=== PATIENT | female | born 1980 ===

== ENCOUNTER → 2022-11-15 09:59 | Outpatient (CLI) | payer OTHER, SELFPAY ==
--- NOTE | 2022-11-15 | DI.MG.S_ITS ---
UNILATERAL LEFT DIGITAL DIAGNOSTIC MAMMOGRAM 3D/2D WITH ADDITIONAL VIEWS: 11/15/2022 CLINICAL: Additional evaluation requested from prior study. Comparison is made to exams dated: 11/07/2022 mammogram and 07/20/2021 mammogram - [facility]. The left breast is heterogeneously dense, which may obscure small masses (category c / 51-75% glandular tissue). There is an asymmetry in the left breast sub-areolar depth central to the nipple seen on the mediolateral oblique view only. This is not seen in additional views. No other significant masses or calcifications are seen in the breast. IMPRESSION: INCOMPLETE: NEEDS ADDITIONAL IMAGING EVALUATION The asymmetry in the left breast is indeterminate. An ultrasound is recommended. Based on the Tyrer Cuzick model (a risk assessment model) the patient's lifetime risk is 14.3% and her 10 year risk is 2.5%. According to the ACR, ACS, and NCCN guidelines, an annual breast MRI exam along with mammogram is recommended if the patient's lifetime risk is 20% or greater. This exam was interpreted at Station ID: [id number]. NOTE: For mammograms, a report in lay terms will be sent to the patient. Approximately 15% of breast malignancies will not be visualized mammographically. In the management of a palpable breast mass, a negative mammogram must not discourage biopsy of a clinically suspicious lesion. Electronically Signed By: James Corbin M.D. lc/:11/15/2022 12:34:20 ACR BI-RADS Category 0: Incomplete 3340F
--- NOTE | 2022-11-15 | DI.US.S_ITS ---
ULTRASOUND OF LEFT BREAST: 11/15/2022 CLINICAL: Left breast abnormality. Comparison is made to exams dated: 11/15/2022 mammogram - [facility], 11/07/2022 mammogram, and 07/20/2021 mammogram - [facility]. Real-time ultrasound of the left breast was performed. Woo scale images of the real-time examination were reviewed. No significant abnormalities were seen sonographically in the left breast. IMPRESSION: NEGATIVE There is no sonographic evidence of malignancy. There is no abnormality seen in the left breast to correspond with the mammography finding, likely superimposition. Return to annual mammogram screening schedule is recommended. This exam was interpreted at Station ID: [id number]. Electronically Signed By: James Corbin M.D. lc/:11/15/2022 12:36:03 letter sent: Normal Exam Ultrasound BI-RADS: 1 Negative
== END ==
PROVIDERS: Referring Provider Family Medicine; Visit Provider Family Medicine
DX: R92.8 Other abnormal and inconclusive findings on diagnostic imaging of breast (principal); N64.89 Other specified disorders of breast
CPT/HCPCS: 76642; 77065; G0279

== ENCOUNTER → 2022-12-18 15:37 | Outpatient (CLI) | payer OTHER, SELFPAY ==
--- NOTE | 2022-12-18 | DI.US.S_ITS ---
PROCEDURE: US ABDOMEN LIMITED INDICATIONS: EPIGASTRIC PAIN TECHNIQUE: Real-time scanning was performed of the abdominal and retroperitoneal organs, with image documentation. COMPARISON: None. FINDINGS: Liver: Liver is normal in size and homogeneous in echotexture. Gallbladder: Gallbladder is within normal limits. Biliary ducts: Intrahepatic bile ducts are non-dilated. Extrahepatic bile duct caliber measures 4.0 mm. Normal is 6-7 mm or less in diameter, or 10 mm or less post-cholecystectomy. Pancreas: Visualized portions of the pancreas are sonographically normal. Miscellaneous: No free abdominal fluid. IMPRESSION: Unremarkable ultrasound examination of right upper quadrant abdomen. Dictated by: Juan Ramon Mcdaniel M.D. on 12/18/2022 at 21:53 Approved by: Juan Ramon Mcdaniel M.D. on 12/18/2022 at 21:53
== END ==
PROVIDERS: Referring Provider Family Medicine; Visit Provider Family Medicine
DX: R10.13 Epigastric pain (principal)
CPT/HCPCS: 76705

== ENCOUNTER → 2023-01-23 16:20 | Outpatient (CLI) | payer OTHER, SELFPAY ==
--- NOTE | 2023-01-23 | DI.US.S_ITS ---
PROCEDURE: US PELVIC COMPLETE INDICATIONS: MENORRHAGIA WITH IRREGULAR CYCLE TECHNIQUE: Real-time scanning was performed of the pelvic organs, with image documentation. Additional endovaginal scanning was necessary due to incomplete visualization of the adnexal and endometrial structures by transabdominal scanning. COMPARISON: None. FINDINGS: Uterus: Uterus is anteverted and normal in size at 10.9 x 5.5 x 6.4 cm. The myometrium is heterogeneous. The endometrium measures 10 mm combined thickness. Posterior midline subserosal fibroid measuring 1.6 x 1.2 x 1.7 cm. Increase pelvic vascularity. Ovaries: The right ovary measures 1.7 x 2.8 x 1.8 cm, with a calculated ovarian volume of 4.5 cc. The left ovary measures 1.8 x 3.1 x 2.3 cm, with a calculated ovarian volume of 6.7 cc. The ovaries have a normal sonographic appearance. Less than 12 follicles can be seen in each ovary. No adnexal masses are seen. Other: No pathologic free abdominal or pelvic fluid. IMPRESSION: 1. The endometrium measures 10 mm in thickness which is normal in a premenopausal woman. 2. Subserosal fibroid measuring 1.7 cm. 3. Increased pelvic vascularity, can be seen with pelvic congestion syndrome, recommend clinical correlation. 4. The ovaries are normal in appearance. We strive to produce accurate, complete, and clear reports of imaging services. To assist us in improving patient care, this report was composed using standard report templates and voice recognition software. Therefore, it may contain abnormal punctuation, insertions and/or omissions. Occasional wrong-word or sound-alike substitutions may occur. Though we review the report and make efforts to correct it, we do recommend that the report be read carefully in proper context to recognize any text inaccuracies. Dictated by: Alberto Johnson M.D. on 01/24/2023 at 10:33 Approved by: Alberto Johnson M.D. on 01/24/2023 at 10:36
== END ==
PROVIDERS: Referring Provider Nurse Practitioner Women's Health; Visit Provider Nurse Practitioner Women's Health
DX: N92.1 Excessive and frequent menstruation with irregular cycle (principal); D25.2 Subserosal leiomyoma of uterus
CPT/HCPCS: 76830; 76856; 93975

== ENCOUNTER → 2023-11-11 10:46 | Outpatient (CLI) | payer OTHER, SELFPAY ==
--- NOTE | 2023-11-11 10:47 | DI.MG.S_ITS ---
BILATERAL DIGITAL SCREENING MAMMOGRAM 3D/2D WITH CAD: 11/11/2023 CLINICAL: Routine screening. Family history of breast cancer. Comparison is made to exams dated: 11/15/2022 mammogram - [facility], 11/07/2022 mammogram - [facility] [place], 11/07/2022 mammogram - [facility], 07/20/2021 mammogram - [facility] [place], and 07/20/2021 mammogram - [facility]. Both breasts are heterogeneously dense, which may obscure small masses (category c / 51-75% glandular tissue). Current study was also evaluated with a Computer Aided Detection (CAD) system. No significant masses, calcifications, or other findings are seen in either breast. There has been no significant interval change. IMPRESSION: NEGATIVE There is no mammographic evidence of malignancy. A 1 year screening mammogram is recommended. Based on the Tyrer Cuzick model (a risk assessment model) the patient's lifetime risk is 15.0% and her 10 year risk is 2.8%. According to the ACR, ACS, and NCCN guidelines, an annual breast MRI exam along with mammogram is recommended if the patient's lifetime risk is 20% or greater. This exam was interpreted at Station ID: [id number]. NOTE: For mammograms, a report in lay terms will be sent to the patient. Approximately 15% of breast malignancies will not be visualized mammographically. In the management of a palpable breast mass, a negative mammogram must not discourage biopsy of a clinically suspicious lesion. Electronically Signed By: Alf stokes/naman:11/11/2023 15:53:30 letter sent: Normal Exam ACR BI-RADS Category 1: Negative [id number]
== END ==
PROVIDERS: PCP Family Medicine; Referring Provider Family Medicine; Visit Provider Family Medicine
DX: Z12.31 Encounter for screening mammogram for malignant neoplasm of breast (principal); Z80.3 Family history of malignant neoplasm of breast; R92.333 Mammographic heterogeneous density, bilateral breasts
CPT/HCPCS: 77063; 77067